=== PATIENT | female | born 1955 | race Caucasian/White ===

== ENCOUNTER 2023-02-02 09:28 | Outpatient (OUT) | payer OTHER, SELFPAY ==
[2023-02-02 10:16] LABS: Basophils Percent Auto 0.7 % (0.2-2.0); Eosinophils Absolute Auto 0.1 10^3/uL (0.0-0.7); Eosinophils Percent Auto 3.4 % (0.9-7.0); Hematocrit 39.2 % (36.0-48.0); Lymphocytes Absolute Auto 1.1 10^3/uL (1.2-3.8); Lymphocytes Percent Auto 41.6 % (20.5-60.0); Mean Corpuscular HGB Conc 33.2 g/dL (29.9-35.2); Mean Corpuscular Hemoglobin 30.8 pg (26.7-34.0); Mean Corpuscular Volume 92.9 fL (81.0-99.0); Mean Platelet Volume 9.4 fL (9.5-13.5); Monocytes Absolute Auto 0.2 10^3/uL (0.3-0.8); Monocytes Percent Auto 7.9 % (1.7-12.0); Neutrophils Absolute Auto 1.2 10^3/uL (1.4-6.5); Neutrophils Percent Auto 46.4 % (43.0-75.0); Platelet Count 222 10^3/uL (150-450); Red Blood Count 4.22 10^6/uL (4.20-5.40); White Blood Count 2.7 10^3/uL (4.0-11.0)
[2023-02-02 10:46] LABS: Free T4 0.96 ng/dL (0.76-1.46)
[2023-02-02 10:50] LABS: Alanine Aminotransferase 23 U/L (14-59); Albumin Globulin Ratio 1.3; Albumin Level 3.9 g/dL (3.4-5.0); Alkaline Phosphatase 47 U/L (46-116); Anion Gap 9.8; Aspartate Amino Transferase 18 U/L (15-37); Bilirubin Total 0.5 mg/dL (0.2-1.0); Calcium 8.7 mg/dL (8.5-10.1); Carbon Dioxide 28.7 mmol/L (21.0-32.0); Chloride 105 mmol/L (98-107); Chol HDL Ratio 3.4; Cholesterol 186 mg/dL (<=200); Estimated GFR (African America >60 (>=60); Estimated GFR (Non-African Ame >60 (>=60); Globulin 2.9 g/dL; Glucose 97 mg/dL (74-106); HDL Cholesterol 55 mg/dL (40-60); LDL Cholesterol Calculated 115.2 mg/dL; Potassium 4.5 mmol/L (3.5-5.1); Sodium 139 mmol/L (136-145); Thyroid Stimulating Hormone 1.402 uIU/mL (0.358-3.740); Total Protein 6.8 g/dL (6.4-8.2); Triglycerides 79 mg/dL (<=150); VLDL CHOLESTEROL 15.8 mg/dL
== END 2023-02-02 09:29 | disposition home or self-care (01) ==
LOC: LAB 09:33
PROVIDERS: PCP Family Medicine; Visit Provider Family Medicine
DX: Z00.00 Encounter for general adult medical examination without abnormal findings (principal); E78.00 Pure hypercholesterolemia, unspecified
CPT/HCPCS: 36415; 80053; 80061; 84439; 84443; 85025

== ENCOUNTER 2023-02-02 09:40 | Outpatient (OUT) | payer OTHER, SELFPAY ==
[2023-02-02 10:25] LABS: Partial Thromboplastin Time 26.2 sec (22.3-36.2); Prothrombin Time 9.8 sec (9.0-11.6)
[2023-02-02 10:27] LABS: INR <0.93
== END 2023-02-02 09:41 | disposition home or self-care (01) ==
LOC: LAB 09:40
PROVIDERS: PCP Family Medicine; Visit Provider Urology
DX: Z00.00 Encounter for general adult medical examination without abnormal findings (principal); E78.00 Pure hypercholesterolemia, unspecified; Z01.812 Encounter for preprocedural laboratory examination; N30.20 Other chronic cystitis without hematuria; N35.92 Unspecified urethral stricture, female; H91.90 Unspecified hearing loss, unspecified ear; N26.1 Atrophy of kidney (terminal); E78.5 Hyperlipidemia, unspecified; D64.9 Anemia, unspecified; Z79.01 Long term (current) use of anticoagulants
CPT/HCPCS: 36415; 80053; 80061; 84439; 84443; 85025; 85610; 85730

== ENCOUNTER 2023-02-13 10:09 | Outpatient (OUT) | payer OTHER, SELFPAY ==
--- NOTE | 2023-02-13 10:12 | ECG_ITS ---
[facility] Test Date: 2023-02-13 Pat Name: Sofi Ceja Department: Room: - Gender: Female [employer]: : 1955 Requested By: IRENA SCOTT Order Number: [id number] Reading MD: ESTUARDO INGRAM Measurements Intervals [place] Rate: 63 P: 27 DE: 137 QRS: 1 QRSD: 89 T: 34 QT: 408 QTc: 419 Interpretive Statements SINUS RHYTHM No previous ECG available for comparison Electronically Signed On 02-14-2023 6:59:29 EDT by ESTUARDO INGRAM
== END 2023-02-13 10:10 | disposition home or self-care (01) ==
LOC: PST 10:10
PROVIDERS: PCP Family Medicine; Visit Provider Urology
DX: Z01.810 Encounter for preprocedural cardiovascular examination (principal); N30.20 Other chronic cystitis without hematuria; N35.92 Unspecified urethral stricture, female; H91.90 Unspecified hearing loss, unspecified ear; E78.5 Hyperlipidemia, unspecified; N26.1 Atrophy of kidney (terminal); D64.9 Anemia, unspecified; Z79.01 Long term (current) use of anticoagulants
CPT/HCPCS: 93005

== ENCOUNTER 2023-02-15 07:25 | Day surgery (SDC) | payer OTHER, SELFPAY ==
[2023-02-13 10:32] VITALS: BP 134/86; PULSE 70; RESP 14; TEMP 36.8; O2SAT 98; BMI 21.9
[2023-02-15 07:38] VITALS: BP 124/75; PULSE 71; RESP 16; TEMP 36.1; O2SAT 94; BMI 21.8
[2023-02-15] MEDS: SCOPOLAMINE 1 EACH PATCH.TD.3 1 PATCH TD ×2 (07:54→07:56)
[2023-02-15] MEDS: LACTATED RINGER'S SOLUTION 1,000 ML 50 ML IV (07:54)
[2023-02-15] MEDS: FAMOTIDINE/PF 20 MG/2 ML VIAL IV (08:16)
[2023-02-15] MEDS: GENTAMICIN SULFATE 80 MG in 0.9 % SODIUM CHLORIDE 100 ML 204 MG IV (09:19)
--- NOTE | 2023-02-15 09:51 | P.URON_ITS ---
Urology Surgery Operative Note Operative Note Procedure Date: 02/15/23 Time Out Performed: yes Pre-op Diagnosis: recurrent urethral stricture and recurrent urinary infections Post-op Diagnosis: same Procedures performed: #1. Urethral dilation with Josselin sounds to 32 [place]. #2. Cystoscopy. Anesthesia: MAC and local Primary Surgeon: Pito Man Complications: non- Estimated blood loss (mL): 0 Findings: #1. Recurrent urethral stenosis. #2. Unremarkable bladder Specimens: non- Indications for Procedures: this lady has a history of urethral stenosis, recurrent urinary infections and incomplete emptying. she does use estradiol cream 3 times a week.She now presents for urethral dilation and cystoscopy. She has signed an informed consent for these procedures after all the risks were explained to her. Detailed description of Procedure: The patient was brought to the operating room and placed on the operating room table in the supine position. SCDs were placed on the lower extremities and turned on and functioning during the entire case. Timeout was done by all parties in the room. We all agreed upon the patient's identification and the planned procedures for this patient. Genn. anesthesia was then administered. The patient was then repositioned into the modified dorsal lithotomy position. All pressure points were satisfactorily padded. Genitalia were sterilely prepped and draped in usual fashion. I started by using [place] sounds and dilating her urethra from 20 [place] up to 32 [place]. The urethra did not bleed. I then passed a 22 [place] Olympus cystoscope per urethra and into the bladder. Panendoscopy in the bladder showed no evidence of any tumors, stones or foreign bodies. The bladder mucosa did not look infected at this time. Clear urine was seen effluxing from the orifices. The bladder was drained of its contents and the scope was then removed. The urethra was fairly unremarkable also. She was then transferred to a [facility] bed and wheeled to PACU in stable condition.
[2023-02-15 09:54] VITALS: BP 81/45; PULSE 64; RESP 16; O2SAT 94
[2023-02-15 10:06] VITALS: BP 88/55; PULSE 67; RESP 16; O2SAT 95
[2023-02-15 10:18] VITALS: BP 104/67; PULSE 52; RESP 16; O2SAT 98
[2023-02-15 10:46] VITALS: BP 129/76; PULSE 61; RESP 16; O2SAT 100
== END 2023-02-15 10:45 | disposition home or self-care (01) ==
PROVIDERS: PCP Family Medicine; Visit Provider Urology
PROC: (CPT 52281; principal; 2023-02-15 08:40)
DX: N35.12 Postinfective urethral stricture, not elsewhere classified, female (principal); N30.20 Other chronic cystitis without hematuria; R33.9 Retention of urine, unspecified; H91.90 Unspecified hearing loss, unspecified ear; Z79.899 Other long term (current) drug therapy; Z79.82 Long term (current) use of aspirin; E78.00 Pure hypercholesterolemia, unspecified; Z87.891 Personal history of nicotine dependence
CPT/HCPCS: 52281; J2704